=== PATIENT | female | born 1945 | race Caucasian/White ===

== ENCOUNTER 2019-09-14 06:18 | Emergency (ER) | payer OTHER | END 2019-09-14 08:34 | LOC: EDBD 06:18 → ER 06:18 | DX: I46.9 Cardiac arrest, cause unspecified (principal); T24.201A Burn of second degree of unspecified site of right lower limb, except ankle and foot, initial encounter; E16.2 Hypoglycemia, unspecified; F17.210 Nicotine dependence, cigarettes, uncomplicated; X08.8XXA Exposure to other specified smoke, fire and flames, initial encounter; Y93.89 Activity, other specified; Y92.89 Other specified places as the place of occurrence of the external cause; Y99.8 Other external cause status ==